=== PATIENT | female | born 1965 | race Caucasian/White ===

== ENCOUNTER 2017-11-03 02:22 | Observation (INO) | payer OTHER ==
[~2017-11-03] VITALS: Ht 165.1 cm; Wt 106.4 kg
[2017-11-03] MEDS ORDERED: ONDANSETRON HCL INJ 2 MG/ML VIAL IV STA (02:59)
[2017-11-03] MEDS ORDERED: PANTOPRAZOLE 40 MG 10ML VIAL IV STA (02:59)
[2017-11-03] MEDS ORDERED: SODIUM CHLORIDE 0.9% 1000ML 1,000 ML IV ONE (03:00)
[2017-11-03 03:33] LABS: BASOPHILS # (AUTO) 0.1 (0.0-0.1); BASOPHILS % 0.2 % (0.0-1.0); EOSINOPHILS # (AUTO) 0.1 (0.0-0.4); EOSINOPHILS % 0.4 % (0.0-6.0); HEMATOCRIT 38.9 % (34.2-44.1); HEMOGLOBIN 13.6 g/dL (12.0-16.0); LYMPHOCYTES # (AUTO) 2.9 (1.0-3.2); LYMPHOCYTES % 11.8 % (18.0-39.1); MEAN CORPUSCULAR HEMOGLOBIN 30.9 pg (28-32); MEAN CORPUSCULAR VOLUME 88.4 fL (81-99); MONOCYTES # (AUTO) 1.7 (0.2-0.8); MONOCYTES % 6.9 % (4.4-11.3); NEUTROPHILS # (AUTO) 19.8 (2.1-6.9); NEUTROPHILS % 80.2 % (38.7-80.0); PLATELET COUNT 467 x10e3/uL (140-360); RED CELL DISTRIBUTION WIDTH 12.5 % (11.7-14.4)
[2017-11-03 03:36] LABS: BILIRUBIN,URINE NEGATIVE (NEGATIVE); CLARITY,URINE SL CLOUDY (CLEAR); COLOR,URINE YELLOW (YELLOW); KETONES,URINE NEGATIVE (NEGATIVE); LEUKOCYTE ESTERASE ,URINE 2+ (NEGATIVE); NITRITE,URINE NEGATIVE (NEGATIVE); PROTEIN,URINE DIPSTICK 2+ (NEGATIVE); URINE UROBILINOGEN 0.2 mg/dL (0.2 - 1)
[2017-11-03 03:43] LABS: WBC,URINE (MAN) >50 /HPF (0-5)
[2017-11-03 03:44] LABS: BACTERIA,URINE MANY /HPF; EPITHELIAL CELLS,URINE RARE /LPF
[2017-11-03 03:45] LABS: TRANSITIONAL EPI CELLS,URINE RARE
[2017-11-03 03:57] LABS: ALANINE AMINOTRANSFERASE 19 IU/L (0-55); ALBUMIN 3.7 g/dL (3.5-5.0); ALBUMIN/GLOBULIN RATIO 0.7 (0.8-2.0); ALKALINE PHOSPHATASE 124 IU/L (40-150); AMYLASE 57 U/L (25-125); ANION GAP 16.3 mmol/L (8-16); BLOOD UREA NITROGEN 13 mg/dL (7-26); BUN/CREATININE RATIO 15 (6-25); CALCIUM 9.7 mg/dL (8.4-10.2); CARBON DIOXIDE 26 mmol/L (22-29); CHLORIDE 99 mmol/L (98-107); CREATINE KINASE 72 IU/L (29-168); CREATININE, SERUM 0.84 mg/dL (0.57-1.11); EST GLOMERULAR FILTRATION RATE > 60 ML/MIN (60-); GLUCOSE 152 mg/dL (74-118); LIPASE 15 U/L (8-78); POTASSIUM 3.3 mmol/L (3.5-5.1); SODIUM 138 mmol/L (136-145)
[2017-11-03 04:05] LABS: LYMPHOCYTES % (MANUAL) 11 % (19-48); MONOCYTES % (MANUAL) 7 % (3.4-9.0); NEUTROPHILS % (MANUAL) 82 % (40-74); PLATELET ESTIMATE SLIGHTLY INCREASED; PLATELET MORPHOLOGY COMMENT NORMAL; RBC MORPHOLOGY COMMENT NORMAL
[2017-11-03] MEDS ORDERED: SODIUM CHLORIDE 0.9% 50ML 50 ML ONE (04:15)
[2017-11-03] MEDS ORDERED: IOPAMIDOL 370 MG/ML 200 ML INFUS..BTL INJ ONE (04:16)
[2017-11-03] MEDS ORDERED: MORPHINE SULFATE 2 MG/ML SYR IV STA (04:17)
--- NOTE | 2017-11-03 05:09 | Diagnostic Imaging Report ---
EXAM: CT ABDOMEN AND PELVIS with IV CONTRAST DATE: 11/03/2017 2:59 AM Time stamp on Exam: 0444 hours INDICATION: Abdominal pain, nausea, vomiting, diarrhea COMPARISON: None TECHNIQUE: The abdomen and pelvis were scanned using a multidetector helical scanner. Coronal and sagittal reformations were obtained. Routine protocol performed. IV Contrast: 100 cc Isovue 370 Oral Contrast: Water CTDIvol has been reviewed. It is below the limits set by the Radiation Protocol Committee (RPC). FINDINGS: LOWER THORAX: Mild dependent bibasilar atelectasis LIVER: No masses BILIARY: Gallbladder stones, distention, wall thickening and pericholecystic inflammation. No ductal dilation. SPLEEN: No masses PANCREAS: No masses ADRENALS: No nodules KIDNEYS: Normal appearance of the right kidney. Multiple stones in the inferior pole calyces with chronic calyceal obstruction and cortical thinning. GI TRACT: No distention, wall thickening or evidence of obstruction. Small to moderate sized sliding hiatal hernia. Normal appendix. VESSELS: Unremarkable PERITONEUM/RETROPERITONEUM: No free air or fluid LYMPH NODES: No lymphadenopathy REPRODUCTIVE ORGANS: Unremarkable BLADDER: Unremarkable SOFT TISSUES: Unremarkable BONES: No suspicious bone lesions. IMPRESSION: Cholelithiasis with CT findings of cholecystitis. Signed by: Dr. Miranda Clifton M.D. on 11/03/2017 5:06 AM
[2017-11-03] MEDS ORDERED: HYDROMORPHONE 1MG/1ML INJ IV STA (05:18)
[2017-11-03] MEDS: PIPER-TAZ 3.375 GM 50 ML IV SCH ×4 (05:25→22:48)
[2017-11-03] MEDS ORDERED: KCL 20MEQ/.9 SOD CHL 1,000 ML IV ONE (06:00)
[2017-11-03] MEDS ORDERED: HYDRALAZINE HCL 20 MG/ML VIAL ONE (06:18)
[2017-11-03] MEDS: HYDRALAZINE HCL 20 MG/ML VIAL IV PRN ×2 (06:20→09:58)
[2017-11-03] MEDS: ONDANSETRON HCL INJ 2 MG/ML VIAL IV PRN ×3 (07:23→23:50)
[2017-11-03] MEDS: HYDROMORPHONE 1MG/1ML INJ IV PRN ×3 (09:56→23:53)
--- NOTE | 2017-11-03 10:20 | History and Physical ---
Ms. Neff is a 52-year-old female who denies any prior medical history came to the emergency room complaining of a few days of epigastric pain on and off with some nausea, vomiting and fever. The pain got worse yesterday. She decided to come to the emergency room. PAST MEDICAL HISTORY: She denies. ALLERGIES: SHE IS ALLERGIC TO CODEINE. SURGICAL HISTORY: Tubal ligation. SOCIAL HISTORY: She does not smoke and she does not drink. She lives at home with her family. PHYSICAL EXAMINATION GENERAL: Today, the patient is in pain. VITALS: Temperature is 97.2, blood pressure 166/76. HEART: Regular rate. LUNGS: Clear to auscultation. ABDOMEN: Distended. Tender in the epigastric and the right upper quadrant. BLOOD WORK: White count 24.65. Potassium 3.3, creatinine 0.84, glucose 152. Abdominal and pelvic CT shows cholelithiasis with CT findings of cholecystitis. ADMITTING DIAGNOSES 1. Acute cholecystitis. 2. Cholelithiasis. 3. Leukocytosis and fever. 4. Hypertension. PLAN: At the present time, admit the patient to the hospital. We are going to get a surgical consult with Dr. Ayoub. Infectious disease consult Dr. Santizo. Continue pain medications, blood pressure medications IV and IV antibiotics. All of this was discussed with the patient. All questions were answered to satisfaction. Job#: [id number] NONA
--- NOTE | 2017-11-03 14:29 | Consultation ---
DATE OF CONSULTATION: November 03, 2017 REASON FOR CONSULTATION: Cholecystitis and recommendation for antibiotics. Thank you so much for asking me to see this patient. This patient who is a very pleasant 52-year-old white female denies any past medical history. The patient comes in with abdominal pain. She had this abdominal pain for the last 4-5 days and was diffuse. She is not feeling well with it. There is some nausea and occasional vomiting. No diarrhea. The pain she is having is diffuse. Comes and goes. Getting progressively worse over the last 4 days. She thought she was going to take care of it. Then she took gyfw-toa-pketban medicine to have a bowel movement. She had loose stools, but the pain did not improve. The patient finally came to the emergency room. The patient was evaluated with a CAT scan. She was diagnosed with cholecystitis. Infectious disease was consulted. The patient is currently in bed comfortable, but not eased and complaining of diffuse abdominal pain on and off. PAST MEDICAL HISTORY: She denies. PAST SURGICAL HISTORY: She denies. ALLERGIES: NKA. SOCIAL HISTORY: There is no smoking, drug abuse or alcohol use. She stays in . FAMILY HISTORY: Noncontributory. REVIEW OF SYSTEMS HEENT: There is no headache. : Negative. GI: As above. SKIN: Negative. JOINTS: Negative. NEURO: Negative. PSYCH: Negative. Her lab is white count 24.65, hemoglobin 13.6. Sodium 138, potassium 3.3, creatinine 0.84. Bilirubin 0.7, AST 116, ALT 19. She had a CT scan of the abdomen and pelvis which showed cholelithiasis with cholecystitis. PHYSICAL EXAMINATION GENERAL: She is currently alert and oriented. Does not seem to be in acute distress. VITALS: Stable. Currently afebrile. HEENT: She is not icteric. Normocephalic. NECK: Supple. No JVD. No lymphadenopathy. No thyromegaly. CHEST: Clear bilaterally. HEART: S1 and S2. No murmur. ABDOMEN: Soft. She did have diffuse discomfort and tenderness. EXTREMITIES: No edema. IMPRESSION: Cholecystitis. I would recommend to put her Zosyn and n.p.o. Surgery has been consulted. Will follow with you. Job#: [id number] NONA
[2017-11-03] MEDS ORDERED: ACETAMINOPHEN 1000 MG/100 ML IV ONE (14:30)
[2017-11-03] MEDS ORDERED: CEFOXITIN SOD 1 GM VIAL ONE (14:30)
[2017-11-03] MEDS ORDERED: ROCURONIUM BROMIDE 10 MG/ML 5ML VIAL ONE (14:30)
[2017-11-03] MEDS ORDERED: DEXAMETHASONE SOD PHOS INJ 4 MG/ML VIAL ONE (14:30)
[2017-11-03] MEDS ORDERED: DESFLURANE 240 ML BTL INH ONE (14:30)
[2017-11-03] MEDS ORDERED: PROPOFOL IV EMULSION 10 MG/ML 20 ML VIAL ONE (14:30)
[2017-11-03] MEDS ORDERED: ONDANSETRON HCL INJ 2 MG/ML VIAL ONE (14:30)
[2017-11-03] MEDS ORDERED: GLYCOPYRROLATE INJ 1MG/ 5 ML SYR ONE (14:30)
[2017-11-03] MEDS ORDERED: NEOSTIGMINE 5 MG/5ML SYR ONE (14:30)
[2017-11-03] MEDS ORDERED: LIDOCAINE HCL 2% LOCAL INJ 5 ML SDV VIAL INJ ONE (14:30)
[2017-11-03] MEDS ORDERED: FENTANYL CITRATE/PF 100MCG/2 ML INJ ONE (15:59)
[2017-11-03] MEDS ORDERED: MIDAZOLAM HCL 2 MG/2 ML VIAL ONE (15:59)
--- NOTE | 2017-11-03 16:07 | Consultation ---
DATE OF CONSULTATION: November 03, 2017 CHIEF COMPLAINT: Abdominal pain. HISTORY OF PRESENT ILLNESS: This patient is a 52-year-old female with a 3-day history of pain in the epigastric area radiating to the back with some vomiting and subjective fevers. No diarrhea. Patient has had recurrent pain in the past. SURGICAL HISTORY: Tubal ligation. PAST MEDICAL HISTORY: Negative for chronic disease. ALLERGIES: SHE IS ALLERGIC TO CODEINE. SOCIAL HABITS: Patient does not smoke or drink. REVIEW OF SYSTEMS: Unremarkable except for current complaint. PHYSICAL EXAMINATION VITAL SIGNS: Stable. The patient is afebrile. GENERAL: Patient is awake, alert, in moderate discomfort. HEENT: Sclerae are anicteric. NECK: Supple. LUNGS: Clear. HEART: Regular rate and rhythm. ABDOMEN: Soft with some tenderness and guarding in the right upper quadrant. EXTREMITIES: Without edema or cyanosis. LABS: White cell count 24,000. Platelet count 467. Liver function test unremarkable. Creatinine 0.8. Lipase 15. CT of the abdomen has shown gallstone with thickened gallbladder wall. ASSESSMENT: Cholelithiasis and cholecystitis. PLAN: Laparoscopic cholecystectomy. Attendant risks have been discussed. Job#: [id number]
[2017-11-03] MEDS ORDERED: BUPIVACAINE 0.25%/EPI 30ML SDV INJ ONE ×2 (18:08→18:14)
--- NOTE | 2017-11-03 21:07 | Operative Report ---
DATE OF PROCEDURE: November 03, 2017 PREOPERATIVE DIAGNOSIS: Cholecystitis. POSTOPERATIVE DIAGNOSES 1. Cholecystitis. 2. Cholelithiasis. OPERATIVE PROCEDURE: Laparoscopic cholecystectomy. DEHORNER: None. ANESTHESIA: General endotracheal Dr. Colbert. INDICATIONS: The patient is a 52-year-old female, 1 week history of abdominal pain and CT scan showed gallstone with distention of the gallbladder. The patient has consented for laparoscopic cholecystectomy with all attendant risks discussed including bleeding infection and organ injury. PROCEDURE FINDINGS: Stone lodged in the neck of the gallbladder with acute cholecystitis. DESCRIPTION: The patient brought to the OR intubated. Abdomen prepped with alcohol and draped in sterile fashion. A supraumbilical incision is made and a 10 mm port inserted. Insufflation begun. Under direct vision, another port site placed in midepigastric and right upper quadrant. Gallbladder grossly distended requiring decompression. We then proceeded to mobilize the fundus in a cephalad direction and neck laterally. Due to significant inflammation obliterating the regular visible anatomy, we proceeded to dissect the gallbladder from the fundus, where we can see clearly down toward the neck in the process opening the gallbladder in the body of the gallbladder and extracting a large gallstone, which is lodged in the cystic duct. After this is done, the neck of the gallbladder is graspable and retracting in the cephalad direction. We proceeded to dissect out the cystic artery, triple clipped, divided. Cystic duct was also isolated with blunt dissection, and triple clipped and divided between clips, leaving 3 clips on the cystic duct stump. The gallbladder then detached from the liver with cautery and placed in Endopouch and retrieved out the peritoneal cavity. Operative field was then irrigated with saline solution. Hemostasis achieved. A 19-Malian Juvenal drain placed in Osborn pouch and taken out through the right upper quadrant port site. All other ports removed under direct vision. Fascial closure with 0-Vicryl. Skin was closed with subcuticular stitch. The patient was extubated, transported to recovery room in guarded condition. ESTIMATED BLOOD LOSS: 40 mL. Job#: [id number] CQ
[2017-11-03 23:09] VITALS: BP_SYST 138; BP_DIAS 60; BP_DIAS 63
[2017-11-03] MEDS ORDERED: VYVANSE50 MG PO (23:09)
[2017-11-04] VITALS (8 sets, daily range): BP systolic 105–140; BP diastolic 59–79
[2017-11-04] MEDS: ONDANSETRON HCL INJ 2 MG/ML VIAL IV PRN ×3 (04:24→21:55)
[2017-11-04] MEDS: HYDROMORPHONE 1MG/1ML INJ IV PRN ×3 (04:26→21:55)
[2017-11-04 05:03] LABS: HEMATOCRIT 35.7 % (34.2-44.1); HEMOGLOBIN 11.9 g/dL (12.0-16.0); MEAN CORPUSCULAR HEMOGLOBIN 30.7 pg (28-32); MEAN CORPUSCULAR HGB CONC 33.3 g/dL (31-35); PLATELET COUNT 456 x10e3/uL (140-360); RED BLOOD COUNT 3.88 x10e6/uL (3.6-5.1); RED CELL DISTRIBUTION WIDTH 13.2 % (11.7-14.4)
[2017-11-04 05:40] LABS: ALANINE AMINOTRANSFERASE 16 IU/L (0-55); ALBUMIN 2.6 g/dL (3.5-5.0); ALBUMIN/GLOBULIN RATIO 0.5 (0.8-2.0); ALKALINE PHOSPHATASE 121 IU/L (40-150); AMYLASE 27 U/L (25-125); ANION GAP 15.7 mmol/L (8-16); BLOOD UREA NITROGEN 14 mg/dL (7-26); BUN/CREATININE RATIO 18 (6-25); CARBON DIOXIDE 20 mmol/L (22-29); CHLORIDE 104 mmol/L (98-107); EST GLOMERULAR FILTRATION RATE > 60 ML/MIN (60-); GLUCOSE 121 mg/dL (74-118); POTASSIUM 3.7 mmol/L (3.5-5.1); SODIUM 136 mmol/L (136-145)
[2017-11-04 05:45] LABS: LIPASE < 4 U/L (8-78)
[2017-11-04] MEDS: PIPER-TAZ 3.375 GM 50 ML IV SCH ×3 (06:04→21:44)
[2017-11-04 07:04] LABS: LYMPHOCYTES % (MANUAL) 6 % (19-48); MONOCYTES % (MANUAL) 1 % (3.4-9.0); NEUTROPHILS % (MANUAL) 93 % (40-74)
[2017-11-04 07:05] LABS: ANISOCYTOSIS SLIGHT; HYPOCHROMASIA SLIGHT; PLATELET ESTIMATE SLIGHTLY INCREASED; PLATELET MORPHOLOGY COMMENT FEW GIANT; RBC MORPHOLOGY COMMENT NORMAL
--- NOTE | 2017-11-04 09:39 | Progress Note ---
DATE: November 04, 2017 Ms. Neff is a 52-year-old female who denies any prior medical history came to the emergency room complaining of epigastric pain for a few days with nausea, vomiting and fever. It got worse the day of admission. She decided to come to the emergency room. She was found to have cholecystitis with cholelithiasis. She underwent cholecystectomy yesterday. PHYSICAL EXAMINATION GENERAL: Today, she is sleeping. VITALS: Temperature is 99.1, blood pressure 121/67. HEART: Regular rate. LUNGS: Clear to auscultation. ABDOMEN: Distended and soft. BLOOD WORK: Potassium 3.7, creatinine 0.8, glucose 121. White count is 35.6, hemoglobin 11.9, hematocrit 35.1. ASSESSMENT AND PLAN 1. Acute cholecystitis. 2. Cholelithiasis. 3. Leukocytosis and fever. 4. Hypertension. PLAN: At the present time, continue to monitor white count. Continue IV antibiotics. Once the white count goes down and the infection is under control, the patient is going to be able to go home. All of this was discussed with the family member at bedside. All questions were answered to satisfaction. Job#: [id number] NONA
[2017-11-04] MEDS ORDERED: PIPER-TAZ 3.375 GM 50 ML IV SCH ×2 (16:00→22:00)
[2017-11-05] VITALS (10 sets, daily range): BP systolic 118–172; BP diastolic 57–92
[2017-11-05 04:58] LABS: BASOPHILS # (AUTO) 0.1 (0.0-0.1); BASOPHILS % 0.3 % (0.0-1.0); EOSINOPHILS # (AUTO) 0.3 (0.0-0.4); EOSINOPHILS % 1.6 % (0.0-6.0); HEMATOCRIT 30.3 % (34.2-44.1); HEMOGLOBIN 10.1 g/dL (12.0-16.0); LYMPHOCYTES # (AUTO) 4.4 (1.0-3.2); LYMPHOCYTES % 22.3 % (18.0-39.1); MEAN CORPUSCULAR HGB CONC 33.3 g/dL (31-35); MEAN CORPUSCULAR VOLUME 92.9 fL (81-99); MONOCYTES # (AUTO) 1.4 (0.2-0.8); MONOCYTES % 7.2 % (4.4-11.3); NEUTROPHILS # (AUTO) 13.4 (2.1-6.9); PLATELET COUNT 397 x10e3/uL (140-360); RED BLOOD COUNT 3.26 x10e6/uL (3.6-5.1)
[2017-11-05] MEDS: ONDANSETRON HCL INJ 2 MG/ML VIAL IV PRN ×2 (05:07→20:08)
[2017-11-05] MEDS: HYDROMORPHONE 1MG/1ML INJ IV PRN ×2 (05:07→20:08)
[2017-11-05] MEDS: PIPER-TAZ 3.375 GM 50 ML IV SCH ×3 (05:08→21:49)
[2017-11-05] MEDS: HYDRALAZINE HCL 20 MG/ML VIAL IV PRN ×2 (05:08→20:08)
--- NOTE | 2017-11-05 10:35 | Progress Note ---
DATE: November 04, 2017 Ms. Neff is a 52-year-old female with no prior medical history who came to the emergency room complaining of abdominal pain, vomiting and fever. She was found to have cholecystitis with cholelithiasis. She underwent laparoscopic cholecystectomy. At the present time, she is doing better. PHYSICAL EXAMINATION GENERAL: She is awake and alert. VITALS: Temperature is 97. Blood pressure is 118/57. HEART: Regular rate. LUNGS: Clear to auscultation. ABDOMEN: Distended and soft. She has drainage in the right upper quadrant. BLOOD WORK: Potassium 3.7, creatinine 0.8, glucose 121. White count is 19.6, hemoglobin 10.1, hematocrit 30.3. ASSESSMENT AND PLAN 1. Acute cholecystitis. 2. Cholelithiasis, status post laparoscopic cholecystectomy. 3. Leukocytosis and fever. 4. Hypertension. 5. Urinary tract infection with Escherichia coli. The plan at the present time is to continue to monitor white count. Continue IV antibiotics. If the white count goes down and if stable, she may be able to go home tomorrow. All of this was discussed with the patient, and all questions were answered to satisfaction. Job#: [id number]
[2017-11-06] VITALS: BP 154/69
[2017-11-06 04:00] VITALS: BP 170/79
[2017-11-06 04:33] LABS: HEMATOCRIT 32.9 % (34.2-44.1); HEMOGLOBIN 10.9 g/dL (12.0-16.0); MEAN CORPUSCULAR HEMOGLOBIN 31.2 pg (28-32); MEAN CORPUSCULAR HGB CONC 33.1 g/dL (31-35); MEAN CORPUSCULAR VOLUME 94.3 fL (81-99); PLATELET COUNT 447 x10e3/uL (140-360); RED BLOOD COUNT 3.49 x10e6/uL (3.6-5.1); RED CELL DISTRIBUTION WIDTH 12.8 % (11.7-14.4)
[2017-11-06] MEDS: PIPER-TAZ 3.375 GM 50 ML IV SCH ×2 (05:12→13:43)
[2017-11-06] MEDS: HYDROMORPHONE 1MG/1ML INJ IV PRN (05:13)
[2017-11-06] MEDS: ONDANSETRON HCL INJ 2 MG/ML VIAL IV PRN (05:13)
[2017-11-06] MEDS: HYDRALAZINE HCL 20 MG/ML VIAL IV PRN (05:13)
[2017-11-06 05:47] VITALS: BP 163/72
[2017-11-06 08:00] VITALS: BP 160/72
--- NOTE | 2017-11-06 10:03 | Discharge Summary ---
Ms. Neff is a 52-year-old female with no prior medical history came to the emergency room complaining of abdominal pain, vomiting and fever. She was found to have cholecystitis with cholelithiasis. She underwent laparoscopic cholecystectomy. Urine culture came back positive for urine infection with E. coli. PHYSICAL EXAMINATION GENERAL: Today, she is awake and alert. VITALS: Temperature is 97.4, blood pressure 160/72. HEART: Regular rate. LUNGS: Clear to auscultation. ABDOMEN: Soft. BLOOD WORK: Potassium 3.7, creatinine is 0.8, glucose 121. White count is 12.6, hemoglobin 10.9, hematocrit 32.9. DISCHARGE DIAGNOSES 1. Acute cholecystitis. 2. Cholelithiasis, status post laparoscopic cholecystectomy. 3. Leukocytosis and fever, improving. 4. Hypertension. 5. Urinary tract infection with Escherichia coli. PLAN: Discharge the patient home if it is okay with infectious disease and with surgery. We are going to put her on antibiotics of Levaquin 500 mg daily for 7 days. She is also going to be on losartan with hydrochlorothiazide 50 per 12.5 mg daily for elevated blood pressure. She needs followup with PCP next week and with the surgeon as directed by him. She is to call me or come back to the emergency room if any recurrent problems. SENA LEON MD Job#: [id number] OR
[2017-11-06 11:46] VITALS: BP 154/68
[2017-11-06] MEDS ORDERED: LEVAQUIN500 MG PO (12:30)
[2017-11-06] MEDS ORDERED: LOSARTAN POTASS25 MG PO (12:33)
[2017-11-06 16:00] VITALS: BP 164/74
== END 2017-11-06 18:49 | disposition home or self-care (01) ==
LOC: ER 02:22 → UNDOADMIN 06:15 → ERHOLD 06:15 → MED/SURG2 20:30 → INTOOBSV 20:30
PROVIDERS: ADMIT Internal Medicine; ATTEND Internal Medicine
DX: K80.00 Calculus of gallbladder with acute cholecystitis without obstruction (principal); N30.00 Acute cystitis without hematuria; I10 Essential (primary) hypertension; D72.829 Elevated white blood cell count, unspecified; Z88.5 Allergy status to narcotic agent; B96.20 Unspecified Escherichia coli [E. coli] as the cause of diseases classified elsewhere; E66.9 Obesity, unspecified; Z68.38 Body mass index [BMI] 38.0-38.9, adult
CPT/HCPCS: 36415 ×4; 47562; 74177; 80053 ×2; 81001; 82150 ×2; 82550; 82553; 83690 ×2; 84484; 85007 ×2; 85025 ×2; 85027 ×2; 87086; 87186; 88304; 93005; 96374; 96376; 99284; G0378 ×4; J0360 ×3; J0694; J1100; J1170 ×4; J2001; J2250; J2270; J2405 ×4; J2543 ×4; J3490; J7030; Q9967

== ENCOUNTER → 2022-09-11 | Day surgery (SDC) | payer OTHER ==
[2022-09-09 11:48] LABS: BASOPHILS % 0.3 % (0.0-1.0); EOSINOPHILS # (AUTO) 0.2 (0.0-0.4); EOSINOPHILS % 1.7 % (0.0-6.0); HEMATOCRIT 27.1 % (34.2-44.1); HEMOGLOBIN 8.8 g/dL (12.0-16.0); LYMPHOCYTES # (AUTO) 2.3 (1.0-3.2); LYMPHOCYTES % 22.6 % (18.0-39.1); MEAN CORPUSCULAR HEMOGLOBIN 28.9 pg (28-32); MEAN CORPUSCULAR HGB CONC 32.5 g/dL (31-35); MEAN CORPUSCULAR VOLUME 88.9 fL (81-99); MONOCYTES # (AUTO) 0.8 (0.2-0.8); MONOCYTES % 7.5 % (4.4-11.3); NEUTROPHILS # (AUTO) 6.8 (2.1-6.9); NEUTROPHILS % 66.4 % (38.7-80.0); PLATELET COUNT 382 x10e3/uL (140-360); RED BLOOD COUNT 3.05 x10e6/uL (3.6-5.1); RED CELL DISTRIBUTION WIDTH 16.3 % (11.7-14.4)
[2022-09-09 12:03] LABS: INR 1.28; PROTHROMBIN TIME 16.5 seconds (11.9-14.5)
[2022-09-09 12:04] LABS: PARTIAL THROMBOPLASTIN TIME 57.5 seconds (23.8-35.5)
[2022-09-09 12:11] LABS: ANION GAP 14.1 mmol/L (8-16); CALCIUM 9.2 mg/dL (8.4-10.2); CREATININE, SERUM 1.43 mg/dL (0.57-1.11); POTASSIUM 3.1 mmol/L (3.5-5.1)
[~2022-09-11] MED LIST: BUMETANIDE1 MG PO; ELIQUIS5 MG PO; LANSOPRAZOLE30 MG PO; LEVAQUIN500 MG PO; LIDOCAINE HCL 2% LOCAL INJ 5 ML SDV VIAL INJ ONE; LOSARTAN POTASS25 MG PO; PROPOFOL IV EMULSION 10 MG/ML 20 ML VIAL ONE; ROPINIROLE HCL1 MG PO; SODIUM CHLORIDE 0.9% 500ML 500 ML ONE; SUCRALFATE1 GM PO; TRAZODONE HCL50 MG PO; ULTRAM 50MG50 MG PO; VYVANSE50 MG PO
[2022-09-11 09:45] VITALS: BP 134/61; PULSE 89; RESP 14; O2SAT 98
== END | disposition home or self-care (01) ==
LOC: OR 08:38
PROVIDERS: ATTEND Internal Medicine Gastroenterology
DX: Z43.1 Encounter for attention to gastrostomy (principal); R13.10 Dysphagia, unspecified; K44.9 Diaphragmatic hernia without obstruction or gangrene; Z71.3 Dietary counseling and surveillance; N18.6 End stage renal disease; N20.0 Calculus of kidney; F41.9 Anxiety disorder, unspecified; R42 Dizziness and giddiness; Z01.810 Encounter for preprocedural cardiovascular examination; Z01.812 Encounter for preprocedural laboratory examination; Z79.02 Long term (current) use of antithrombotics/antiplatelets; Z68.32 Body mass index [BMI] 32.0-32.9, adult; Z99.2 Dependence on renal dialysis; Z86.711 Personal history of pulmonary embolism; Z86.2 Personal history of diseases of the blood and blood-forming organs and certain disorders involving the immune mechanism
CPT/HCPCS: 36415 ×2; 43247; 80048; 84132; 85025; 85610; 85730; 93005; J2001; J2704; J7040; 43246

== ENCOUNTER 2023-10-19 15:00 | Emergency (ER) | payer OTHER ==
[~2023-10-19] VITALS: Ht 165.1 cm; Wt 90.3 kg
[~2023-10-19 15:00] MED LIST changes: -LIDOCAINE HCL 2% LOCAL INJ 5 ML SDV VIAL INJ ONE; -PROPOFOL IV EMULSION 10 MG/ML 20 ML VIAL ONE; -SODIUM CHLORIDE 0.9% 500ML 500 ML ONE
[2023-10-19 16:50] LABS: BASOPHILS # (AUTO) 0.1 (0.0-0.1); BASOPHILS % 0.4 % (0.0-1.0); EOSINOPHILS # (AUTO) 0.2 (0.0-0.4); EOSINOPHILS % 1.4 % (0.0-6.0); HEMOGLOBIN 15.3 g/dL (12.0-16.0); LYMPHOCYTES # (AUTO) 3.3 (1.0-3.2); LYMPHOCYTES % 23.4 % (18.0-39.1); MEAN CORPUSCULAR HEMOGLOBIN 30.8 pg (28-32); MEAN CORPUSCULAR HGB CONC 33.3 g/dL (31-35); MEAN CORPUSCULAR VOLUME 92.7 fL (81-99); MONOCYTES # (AUTO) 0.8 (0.2-0.8); MONOCYTES % 5.6 % (4.4-11.3); NEUTROPHILS # (AUTO) 9.7 (2.1-6.9); NEUTROPHILS % 68.8 % (38.7-80.0); PLATELET COUNT 391 x10e3/uL (140-360); RED BLOOD COUNT 4.96 x10e6/uL (3.6-5.1); RED CELL DISTRIBUTION WIDTH 13.2 % (11.7-14.4); WHITE BLOOD COUNT 14.05 x10e3/uL (4.8-10.8)
[2023-10-19 16:54] LABS: INR 1.59; PROTHROMBIN TIME 19.9 seconds (11.9-14.5)
[2023-10-19 17:01] LABS: PARTIAL THROMBOPLASTIN TIME 50.2 seconds (23.8-35.5)
[2023-10-19 17:02] LABS: ALANINE AMINOTRANSFERASE 17 IU/L (0-55); ALBUMIN 4.6 g/dL (3.5-5.0); ALBUMIN/GLOBULIN RATIO 0.9 (0.8-2.0); ALKALINE PHOSPHATASE 116 IU/L (40-150); ANION GAP 16.3 mmol/L (8-16); BILIRUBIN,TOTAL 0.4 mg/dL (0.2-1.2); BLOOD UREA NITROGEN 23 mg/dL (7-26); BUN/CREATININE RATIO 12 (6-25); CALCIUM 10.5 mg/dL (8.4-10.2); CARBON DIOXIDE 22 mmol/L (22-29); CHLORIDE 103 mmol/L (98-107); CREATINE KINASE 27 IU/L (29-168); CREATININE, SERUM 1.93 mg/dL (0.57-1.11); EST GLOMERULAR FILTRATION RATE 30 ML/MIN (>=60); GLUCOSE 94 mg/dL (74-118); POTASSIUM 4.3 mmol/L (3.5-5.1); SODIUM 137 mmol/L (136-145); TOTAL PROTEIN 9.6 g/dL (6.5-8.1)
[2023-10-19 17:07] LABS: TROPONIN I < 0.001 ng/mL (0-0.300)
[2023-10-19 19:01] VITALS: PULSE 90; RESP 16; TEMP 98.6; O2SAT 100
== END 2023-10-19 19:00 | disposition home or self-care (01) ==
LOC: ER 18:16
DX: R55 Syncope and collapse (principal); R53.1 Weakness; R53.83 Other fatigue; I10 Essential (primary) hypertension; K21.9 Gastro-esophageal reflux disease without esophagitis; F90.9 Attention-deficit hyperactivity disorder, unspecified type; R94.31 Abnormal electrocardiogram [ECG] [EKG]; Z86.718 Personal history of other venous thrombosis and embolism
CPT/HCPCS: 36415; 70450; 71045; 80053; 82550; 84484; 85025; 85610; 85730; 93005; 99284